=== PATIENT | female | born 1965 | race Caucasian/White ===

== ENCOUNTER 2020-08-02 23:10 | Inpatient (IN) | payer OTHER ==
[~2020-08-02] VITALS: Ht 167.6 cm; Wt 78.7 kg
--- NOTE | 2020-08-02 23:36 | NUR ---
Pt arrives via [facility]. 20g IV in place right AC, betancourt catheter in place with about 175mL dark tea colored urine present. Pt presents with distended abdomen, jaundiced and ashy colored skin. A+Ox4. Denies pain, SOB, chest pain. Edema present in right leg only, 2+, pt reports this is normal and she thinks it is because she tore her ACL years ago and since then it "gets swelled up sometimes". Hooked up to monitor. Satting 100% RA.
--- NOTE | 2020-08-02 23:40 | NUR ---
Provider at bedside
--- NOTE | 2020-08-02 23:57 | NUR ---
Lab at bedside.
--- NOTE | 2020-08-03 00:09 | NUR ---
US at bedside.
[2020-08-03 00:16] LABS: BILIRUBIN, DIRECT 15.7 mg/dL (0.1-0.2); BILIRUBIN,TOTAL 20.7 mg/dL (0.2-1.0)
--- NOTE | 2020-08-03 00:22 | NUR ---
Total bilirubin 20.7, direct bilirubin 15.7. Provider informed.
--- NOTE | 2020-08-03 00:27 | NUR ---
Pt reports she has no known allergies.
[2020-08-03] MEDS ORDERED: CIPROFLOXACIN/PMX 400MG/200ML 200 ML ONE (00:28)
[2020-08-03] MEDS ORDERED: PLEASE ENTER ALLERGIES MC SCH (00:30)
[2020-08-03] MEDS ORDERED: CIPROFLOXACIN/PMX 400MG/200ML 200 ML IVPB ONE (00:30)
--- NOTE | 2020-08-03 00:35 | NUR ---
Blood cultures have been drawn. Cipro infusing now.
--- NOTE | 2020-08-03 00:51 | NUR ---
US still at bedside.
--- NOTE | 2020-08-03 01:22 | NUR ---
Report called to MARBELL[facility] Brown.
--- NOTE | 2020-08-03 01:33 | NUR ---
Dr. Agrawal at bedside.
--- NOTE | 2020-08-03 01:47 | NUR ---
Pt being transported to [id number].
[2020-08-03 02:06] VITALS: BP 99/63
[2020-08-03] MEDS ORDERED: OXYcodone IR 5MG TABLET PO PRN (04:00)
[2020-08-03] MEDS ORDERED: LABETALOL 5MG/ML, 20ML IVPush PRN (04:00)
[2020-08-03] MEDS ORDERED: ONDANSETRON 2MG/ML, 2ML IVPush PRN (04:00)
[2020-08-03 05:36] LABS: BASOPHILS % (AUTO) 1 % (0-1); EOSINOPHILS % (AUTO) 0 % (1-7); LYMPHOCYTES % (AUTO) 12 % (22-44); MEAN CORPUSCULAR HEMOGLOBIN 34.7 pg (27.0-34.8); MEAN CORPUSCULAR HGB CONC 33.6 g/dL (32.4-35.8); MEAN PLATELET VOLUME 10.4 fL (7.4-10.4); MONOCYTES % (AUTO) 8 % (2-9); NEUTROPHILS % (AUTO) 79 % (42-75); PLATELET COUNT 120 x10^3/uL (130-400); RED BLOOD COUNT 3.07 x10^6/uL (3.82-5.3); RED CELL DISTRIBUTION WIDTH 19.7 % (9.6-15.2)
[2020-08-03 05:37] LABS: INTERNATIONAL NORMALIZED RATIO 3.99 (0.93-1.1); PROTHROMBIN TIME 41.5 Seconds (9.6-11.5)
[2020-08-03 05:38] LABS: CHLORIDE 100 mmol/L (98-107)
[2020-08-03 05:45] LABS: ALANINE AMINOTRANSFERASE 67 U/L (12-78); ALBUMIN 1.8 g/dL (3.4-5.0); ALKALINE PHOSPHATASE 271 U/L (45-117); ANION GAP 11 mmol/L (5-15); CALCIUM 7.6 mg/dL (8.5-10.1); CREATININE 0.71 mg/dL (0.55-1.02); TOTAL PROTEIN 4.7 g/dL (6.4-8.2)
[2020-08-03 05:49] LABS: MD NO
[2020-08-03 05:52] LABS: BILIRUBIN,TOTAL 18.8 mg/dL (0.2-1.0)
[2020-08-03] MEDS: CEFTRIAXONE PMX 1GM/50ML 50 ML IV SCH (06:25)
[2020-08-03 07:03] VITALS: BP 95/61
[2020-08-03] MEDS ORDERED: POTASSIUM CHLORIDE 20 MEQ TAB.ER.PRT PO ONE (07:30)
[2020-08-03] MEDS ORDERED: POTASSIUM CHLORIDE 40 MEQ in SODIUM CHLORIDE 0.9% 500 ML IV ONE (07:30)
[2020-08-03] MEDS: LACTULOSE 10 GM/15 ML UDC PO SCH ×2 (08:29→20:38)
[2020-08-03] MEDS: PANTOPRAZOLE 40MG TABLET PO SCH (08:29)
[2020-08-03] MEDS ORDERED: FLU VACC QS2020-21(6MOS UP)/PF 60MCG/0.5 ML SYR IM ONE (09:00)
[2020-08-03 12:53] VITALS: BP 99/68
[2020-08-03] MEDS ORDERED: methylPREDNISolone SOD SUCC 40 MG/ML IV ONE (17:56)
[2020-08-03 19:19] VITALS: BP 93/65
[2020-08-03 22:16] VITALS: BP 100/69
[2020-08-04 02:50] VITALS: BP 95/63
[2020-08-04] MEDS: CEFTRIAXONE PMX 1GM/50ML 50 ML IV SCH (05:18)
[2020-08-04 05:19] LABS: ALANINE AMINOTRANSFERASE 72 U/L (12-78); ALBUMIN 1.8 g/dL (3.4-5.0); ANION GAP 12 mmol/L (5-15); CALCIUM 7.6 mg/dL (8.5-10.1); CHLORIDE 98 mmol/L (98-107)
[2020-08-04 05:21] LABS: ALKALINE PHOSPHATASE 298 U/L (45-117)
[2020-08-04 05:26] LABS: CREATININE 0.94 mg/dL (0.55-1.02); TOTAL PROTEIN 5.2 g/dL (6.4-8.2)
[2020-08-04 05:28] LABS: BILIRUBIN,TOTAL 22.6 mg/dL (0.2-1.0)
[2020-08-04 05:37] LABS: BASOPHILS % (AUTO) 0 % (0-1); EOSINOPHILS % (AUTO) 0 % (1-7); LYMPHOCYTES % (AUTO) 5 % (22-44); MEAN CORPUSCULAR HGB CONC 33.8 g/dL (32.4-35.8); MEAN PLATELET VOLUME 10.4 fL (7.4-10.4); MONOCYTES % (AUTO) 2 % (2-9); NEUTROPHILS % (AUTO) 93 % (42-75); PLATELET COUNT 184 x10^3/uL (130-400); RED BLOOD COUNT 3.31 x10^6/uL (3.82-5.3); RED CELL DISTRIBUTION WIDTH 19.3 % (9.6-15.2)
[2020-08-04 06:16] LABS: MD MORPH REVIEW ONLY
[2020-08-04 06:17] LABS: ANISOCYTOSIS 1+; HYPOCHROMIA 1+; TARGET CELLS 1+
[2020-08-04 06:18] LABS: <PLATELET ESTIMATE> ADEQUATE; <PLT MORPHOLOGY> NORMAL PLT MORPH
[2020-08-04 07:16] VITALS: BP 97/70
[2020-08-04] MEDS ORDERED: MAGNESIUM SULFATE PMX 2GM/50ML 50 ML IV ONE (07:30)
[2020-08-04] MEDS ORDERED: POTASSIUM PHOSPHATE 22 MEQ in SODIUM CHLORIDE 0.9% 500 ML IV ONE (07:30)
[2020-08-04] MEDS: PANTOPRAZOLE 40MG TABLET PO SCH (08:12)
[2020-08-04] MEDS: methylPREDNISolone SOD SUCC 40 MG/ML IV SCH (08:12)
[2020-08-04] MEDS: LACTULOSE 10 GM/15 ML UDC PO SCH ×2 (08:12→19:48)
[2020-08-04 13:25] VITALS: BP 103/71
[2020-08-04 18:45] VITALS: BP 98/71
[2020-08-05 01:11] VITALS: BP 101/64
[2020-08-05] MEDS: CEFTRIAXONE PMX 1GM/50ML 50 ML IV SCH (04:35)
[2020-08-05 04:59] LABS: BASOPHILS % (AUTO) 0 % (0-1); EOSINOPHILS % (AUTO) 0 % (1-7); LYMPHOCYTES % (AUTO) 9 % (22-44); MEAN CORPUSCULAR HEMOGLOBIN 34.8 pg (27.0-34.8); MEAN CORPUSCULAR HGB CONC 33.8 g/dL (32.4-35.8); MEAN PLATELET VOLUME 10.5 fL (7.4-10.4); MONOCYTES % (AUTO) 7 % (2-9); NEUTROPHILS % (AUTO) 84 % (42-75); PLATELET COUNT 189 x10^3/uL (130-400); RED BLOOD COUNT 2.92 x10^6/uL (3.82-5.3); RED CELL DISTRIBUTION WIDTH 19.1 % (9.6-15.2)
[2020-08-05 05:06] LABS: MD NO
[2020-08-05 05:07] LABS: CALCIUM 7.6 mg/dL (8.5-10.1); CHLORIDE 91 mmol/L (98-107); INTERNATIONAL NORMALIZED RATIO 3.61 (0.93-1.1); PROTHROMBIN TIME 37.7 Seconds (9.6-11.5)
[2020-08-05 05:15] LABS: ALANINE AMINOTRANSFERASE 62 U/L (12-78); ALBUMIN 1.7 g/dL (3.4-5.0); ALKALINE PHOSPHATASE 265 U/L (45-117); ANION GAP 10 mmol/L (5-15)
[2020-08-05 05:29] LABS: CREATININE 0.84 mg/dL (0.55-1.02)
[2020-08-05 05:31] LABS: BILIRUBIN,TOTAL 19.3 mg/dL (0.2-1.0); TOTAL PROTEIN 4.7 g/dL (6.4-8.2)
[2020-08-05] MEDS: PANTOPRAZOLE 40MG TABLET PO SCH (06:34)
[2020-08-05 07:01] VITALS: BP 102/68
[2020-08-05] MEDS: SODIUM CHLORIDE 0.9% 1,000 ML IV SCH ×2 (08:31→20:50)
[2020-08-05] MEDS: methylPREDNISolone SOD SUCC 40 MG/ML IV SCH (08:31)
[2020-08-05 13:30] VITALS: BP 96/61
[2020-08-05 14:35] LABS: ANION GAP 11 mmol/L (5-15); CALCIUM 7.3 mg/dL (8.5-10.1); CHLORIDE 91 mmol/L (98-107); CREATININE 0.88 mg/dL (0.55-1.02)
[2020-08-05 18:31] VITALS: BP 108/73
[2020-08-05 18:31] LABS: CHLORIDE,URINE RANDOM 11 mmol/L; POTASSIUM,URINE RANDOM 31 mmol/L; SODIUM,URINE RANDOM 7 mmol/L
[2020-08-06 01:06] VITALS: BP 100/71
[2020-08-06 05:54] LABS: BASOPHILS % (AUTO) 0 % (0-1); EOSINOPHILS % (AUTO) 0 % (1-7); LYMPHOCYTES % (AUTO) 11 % (22-44); MEAN CORPUSCULAR HGB CONC 33.7 g/dL (32.4-35.8); MEAN PLATELET VOLUME 10.7 fL (7.4-10.4); MONOCYTES % (AUTO) 7 % (2-9); NEUTROPHILS % (AUTO) 82 % (42-75); PLATELET COUNT 215 x10^3/uL (130-400); RED BLOOD COUNT 2.94 x10^6/uL (3.82-5.3); RED CELL DISTRIBUTION WIDTH 17.8 % (9.6-15.2)
[2020-08-06 05:57] LABS: MD NO
[2020-08-06 06:09] LABS: CHLORIDE 93 mmol/L (98-107)
[2020-08-06 06:21] LABS: ALANINE AMINOTRANSFERASE 57 U/L (12-78); ALBUMIN 1.6 g/dL (3.4-5.0); ALKALINE PHOSPHATASE 261 U/L (45-117); ANION GAP 10 mmol/L (5-15); CALCIUM 7.4 mg/dL (8.5-10.1); CREATININE 0.71 mg/dL (0.55-1.02); TOTAL PROTEIN 4.7 g/dL (6.4-8.2)
[2020-08-06 06:25] LABS: BILIRUBIN,TOTAL 17.6 mg/dL (0.2-1.0)
[2020-08-06 06:37] VITALS: BP 100/65
[2020-08-06] MEDS: PANTOPRAZOLE 40MG TABLET PO SCH (07:18)
[2020-08-06] MEDS: methylPREDNISolone SOD SUCC 40 MG/ML IV SCH (09:13)
[2020-08-06] MEDS: SODIUM CHLORIDE 0.9% 1,000 ML IV SCH (09:14)
[2020-08-06] MEDS: SODIUM CHLORIDE 1 GM TABLET PO SCH ×2 (10:30→21:20)
[2020-08-06 12:07] VITALS: BP 101/68
[2020-08-06 18:46] VITALS: BP 100/69
[2020-08-07 01:41] VITALS: BP 91/57
[2020-08-07 06:01] LABS: CHLORIDE 98 mmol/L (98-107)
[2020-08-07 06:08] LABS: ALANINE AMINOTRANSFERASE 49 U/L (12-78); ALBUMIN 1.5 g/dL (3.4-5.0); ALKALINE PHOSPHATASE 255 U/L (45-117); ANION GAP 8 mmol/L (5-15); CALCIUM 7.7 mg/dL (8.5-10.1); CREATININE 0.62 mg/dL (0.55-1.02); TOTAL PROTEIN 4.5 g/dL (6.4-8.2)
[2020-08-07 06:13] LABS: BILIRUBIN,TOTAL 15.8 mg/dL (0.2-1.0)
[2020-08-07 07:28] VITALS: BP 104/70
[2020-08-07] MEDS: PANTOPRAZOLE 40MG TABLET PO SCH (08:24)
[2020-08-07] MEDS: methylPREDNISolone SOD SUCC 40 MG/ML IV SCH (08:25)
[2020-08-07] MEDS: SODIUM CHLORIDE 1 GM TABLET PO SCH (10:33)
[2020-08-07 13:07] VITALS: BP 109/65
[2020-08-07] MEDS ORDERED: PRED20TA PO (17:33)
[2020-08-07] MEDS ORDERED: LACT10PA3 PO (17:33)
== END 2020-08-07 21:00 | disposition home or self-care (01) | DRG 442 ==
LOC: ED 23:52 → EDIP 08-03 01:12 → 3N 08-03 01:59 → 5SO 08-03 06:09 → 4EST 08-03 23:08
PROVIDERS: ADMIT Internal Medicine; ATTEND Family Medicine
DX: K72.00 Acute and subacute hepatic failure without coma (principal); E87.1 Hypo-osmolality and hyponatremia; I82.412 Acute embolism and thrombosis of left femoral vein; E03.9 Hypothyroidism, unspecified; E83.42 Hypomagnesemia; E87.6 Hypokalemia; E88.09 Other disorders of plasma-protein metabolism, not elsewhere classified; F12.90 Cannabis use, unspecified, uncomplicated; Y90.9 Presence of alcohol in blood, level not specified; F10.10 Alcohol abuse, uncomplicated; K70.11 Alcoholic hepatitis with ascites; Z83.3 Family history of diabetes mellitus; Z87.891 Personal history of nicotine dependence; Z98.84 Bariatric surgery status; Z28.21 Immunization not carried out because of patient refusal; Z79.899 Other long term (current) drug therapy
CPT/HCPCS: 36415; 76700; 80048; 80053; 80299; 82247; 82248; 82390; 82436; 83516; 83735; 83930; 83935; 84100; 84133; 84300; 85025; 85610; 86705; 86706; 86709; 86803; 87040; 87340; 93970; 96374; 99285; G0378; J0696; J0744; J3480; J2920; J3475; J7030; J7040